=== PATIENT | female | born 1965 | race Caucasian/White ===

== ENCOUNTER 2020-02-04 13:37 | Emergency (ER) | payer MEDICAID ==
[~2020-02-04] VITALS: Ht 162.6 cm; Wt 79.0 kg
[2020-02-04] MEDS ORDERED: SODIUM CHLORIDE 0.9% 1,000 ML IV ONE (15:43)
[2020-02-04] MEDS ORDERED: FAMOTIDINE 20MG/2ML VIAL IV STA (15:43)
[2020-02-04 16:03] LABS: INR 0.9
[2020-02-04 16:05] LABS: CHLORIDE 109 mEq/L (98-107)
[2020-02-04 16:12] LABS: BASOPHILS % 0.5 % (0.0-2.0); EOSINOPHILS % 1.5 % (0.0-5.0); HEMATOCRIT. 38.3 % (36.0-48.0); MEAN CORPUSCULAR HEMOGLOBIN 31.2 pg (28.0-32.0); MEAN CORPUSCULAR VOLUME 91.8 fL (81.0-99.0); MEAN PLATELET VOLUME 7.8 fl (7.4-10.4); MONOCYTES % 7.3 % (2.0-8.0); NEUTROPHILS % 57.7 % (40.0-76.0); PLATELET 352 x1000/uL (130-400); RED BLOOD CELL COUNT 4.17 mill/uL (4.2-5.4); RED CELL DISTRIBUTION WIDTH 13.3 % (11.6-14.6)
[2020-02-04 16:38] LABS: CLARITY URINE CLEAR (CLEAR); COLOR URINE YELLOW (YELLOW); KETONES URINE NEGATIVE (NEGATIVE); LEUKOCYTE ESTERASE URINE TRACE (NEGATIVE); NITRITE URINE NEGATIVE (NEGATIVE); OCCULT BLOOD URINE NEGATIVE (NEGATIVE); PROTEIN URINE NEGATIVE (NEGATIVE); SPECIFIC GRAVITY URINE 1.004 (1.005-1.030); UROBILINOGEN URINE 0.2 E.U./dL (0.2-1.0)
[2020-02-04 18:43] VITALS: BP 129/84
== END 2020-02-04 18:46 | disposition home or self-care (01) ==
LOC: ER 13:37
DX: K80.80 Other cholelithiasis without obstruction (principal); E11.649 Type 2 diabetes mellitus with hypoglycemia without coma; I10 Essential (primary) hypertension
CPT/HCPCS: 36415; 71045; 76705; 80053; 81003; 83690; 84484; 85025; 85610; 93005; 96374; 99285; J3490; J7030

== ENCOUNTER 2022-05-10 16:11 | Emergency (ER) | payer MEDICAID, OTHER ==
[~2022-05-10] VITALS: Ht 154.9 cm; Wt 74.0 kg
[2022-05-10 16:24] VITALS: BP 137/85
[2022-05-10] MEDS ORDERED: MAGNESIUM/ALUMINUM HYDROXIDE/SIMETHICONE 30ML UDC PO STA (19:38)
[2022-05-10] MEDS ORDERED: MAGNESIUM/ALUMINUM HYDROXIDE/SIMETHICONE 30ML UDC PO NR (19:38)
[2022-05-10] MEDS ORDERED: DICYCLOMINE 10 MG/5 ML ORAL SYR PO NR (19:38)
[2022-05-10] MEDS ORDERED: ACETAMINOPHEN 325MG TABLET PO STA (19:38)
[2022-05-10] MEDS ORDERED: ACETAMINOPHEN 325MG TABLET PO NR (19:38)
[2022-05-10] MEDS ORDERED: DICYCLOMINE 10 MG/5 ML ORAL SYR PO STA (19:38)
[2022-05-10] MEDS ORDERED: FAMOTIDINE 20MG TABLET PO NR (19:45)
[2022-05-10] MEDS ORDERED: FAMOTIDINE 20MG TABLET PO ONE (19:45)
[2022-05-10 20:13] LABS: BASOPHILS % 0.5 % (0.0-2.0); EOSINOPHILS % 2.2 % (0.0-5.0); HEMATOCRIT. 38.8 % (36.0-48.0); HEMOGLOBIN. 13.1 g/dL (12.0-16.0); LYMPHOCYTES % 35.1 % (20.0-50.0); MEAN CORPUSCULAR HEMOGLOBIN 31.2 pg (28.0-32.0); MEAN CORPUSCULAR VOLUME 92.2 fL (81.0-99.0); MEAN PLATELET VOLUME 7.6 fl (7.4-10.4); MONOCYTES % 7.9 % (2.0-8.0); NEUTROPHILS % 54.3 % (40.0-76.0); PLATELET 325 x1000/uL (130-400); RED BLOOD CELL COUNT 4.21 mill/uL (4.2-5.4); RED CELL DISTRIBUTION WIDTH 13.1 % (11.6-14.6)
[2022-05-10 20:17] LABS: CHLORIDE 106 mEq/L (98-107)
[2022-05-10] MEDS ORDERED: FAMO40TA70 MT (21:23)
[2022-05-10] MEDS ORDERED: MAG-55 MT (21:24)
== END 2022-05-10 21:57 | disposition home or self-care (01) ==
LOC: ER 16:11
DX: K21.9 Gastro-esophageal reflux disease without esophagitis (principal); R10.13 Epigastric pain; I10 Essential (primary) hypertension; E11.9 Type 2 diabetes mellitus without complications; Z90.49 Acquired absence of other specified parts of digestive tract
CPT/HCPCS: 36415; 80053; 85025; 99284